=== PATIENT | female | born 1970 | race Caucasian/White ===

== ENCOUNTER 2016-06-12 12:49 | Emergency (ER) | payer OTHER ==
[~2016-06-12 12:49] MED LIST: BACTRIM DS1 TAB PO; PERCOCET1 TA1 PO
--- NOTE | 2016-06-12 14:19 | ED CLINICAL REPORT ---
Clinical Report - Physicians/Mid Levels [facility] [address] [place] [address] 06/12/2016 12:51 Patient: CURTIS ROBLEDO Time Seen: 13:22; initial patient contact, initial documentation, patient care assumed. Arrived- By private vehicle. Historian- patient. HISTORY OF PRESENT ILLNESS Chief Complaint: COUGH and FEVER. This started about 1 weeks ago and is still present. The illness is described as moderate. The patient has had a cough, fever and generalized muscle aches. She has had moderate amounts of brown sputum ('coffee colored' from coffee drinking, so doesn't really know what color the sputum is). No difficulty breathing, chest discomfort or pain or sore throat. No nasal congestion or discharge, sinus pressure or sinus drainage. She has had moderate left ear pain. Additional history - The patient has had contact with a sick coworker. No recent travel. Similar symptoms previously: None. Recent medical care: The patient was seen recently in the office. ( had teeth removed Monday, bottom molars, only rx was pain meds). REVIEW OF SYSTEMS The patient has had a headache. All systems otherwise negative, except as recorded above. PAST HISTORY See nurses notes. PROBLEMS: Folliculitis. Cellulitis. Abscess. Back Pain. --12:59 Velia Esteban R.N. ADDITIONAL SURGERIES: . Hysterectomy. --12:59 Velia Esteban R.N. SOCIAL HISTORY Light tobacco smoker. Occasional alcohol use. Not exposed to second-hand smoke at home. No drug use. No recent travel. Is a local resident. FAMILY HISTORY Negative. ADDITIONAL NOTES The nursing notes have been reviewed with agreement regarding the chief complaint, HPI, ROS, PMH and patient medications and allergies. PHYSICAL EXAM Vital Signs: 06/12/2016 12:55 BP: 134/77. HR: 82. RR: 18. O2 saturation: 100%. Temp: 99.1 F. Pain level now: 5/10. Have been reviewed as normal and appear to be correct. Appearance: Alert. No acute distress. Eyes: Pupils equal, round and reactive to light. Eyes normal inspection. ENT: Ears normal. Nose normal. Pharynx normal. Uvula midline. (L lower molar extraction site, clear, no swelling, no dc). Neck: Normal inspection. Neck supple. CVS: Normal heart rate and rhythm. Heart sounds normal. Pulses normal. Respiratory: No respiratory distress. Breath sounds normal. Back: Normal inspection. Skin: Skin warm and dry. Normal skin color. No rash. Normal skin turgor. Extremities: Extremities exhibit normal ROM. No lower extremity edema. Neuro: Oriented X 3. No motor deficit. No sensory deficit. LABS, X-RAYS, AND EKG Laboratory Tests: Rapid Influenza Screen: (ROSANNA: 06/12/2016 13:45) ( MsgRcvd 06/12/2016 14:05) Final results SPECIMEN DESCRIPTION: NARE Test Result Flag Units (Reference) RAPID INFLUENZA SCREEN DATE: 06/12/16 INFLUENZA A: NEGATIVE SCREEN FOR INFLUENZA A INFLUENZA B: NEGATIVE SCREEN FOR INFLUENZA B . PROGRESS AND PROCEDURES Course of Care: MODULAR SET CREW MEMBER Student Anette assisting with exam and pt care, with my supervision. Patient counseled in person regarding the patient's stable condition, test results and diagnosis. 1415. Differential Diagnosis: Other possible considerations: dental abscess, uri, flu, viral illness, bronchitis, sinusitis, pneumonia. Above considerations are based on history, physical exam and laboratory data. Differential diagnosis was discussed with patient. Disposition: Discharged home in good and unchanged condition (14:19). Condition: good and stable. CLINICAL IMPRESSION Acute viral rhinitis. Moderate dental pain. INSTRUCTIONS Alternate Tylenol (Acetaminophen) and Motrin (Ibuprofen) for fever, temperature greater than 101 degrees orally. Take according to label instructions. Do not work today. Drink plenty of fluids. Warnings: GENERAL WARNINGS: Return or contact your physician immediately if your condition worsens or changes unexpectedly, if not improving as expected, or if other problems arise. Specifically return if problem worsens. Prescription Medications: Penicillin V 500mg: take 1 tab orally every 6 hours for 10 days. Dispense forty (40). No refill Motrin 600 mg tablets: take 1 tablet orally every 6 hours as needed for pain or fever. Dispense thirty (30). No refill. Follow-up: Follow up with your doctor in about three days as needed. Call for an appointment. Summary of care provided to patient. Follow up with a dentist in about three days even if well. Call for an appointment. Summary of care provided to patient. Understanding of the discharge instructions verbalized by patient. (Electronically signed by Tara López A.R.N.P. 06/12/2016 15:04)
--- NOTE | 2016-06-12 14:19 | ED NURSING NOTES ---
Clinical Report - Nurses [facility] [address] [place] [address] 06/12/2016 12:51 Patient: CURTIS ROBLEDO TRIAGE Triage time 1255. Acuity: LEVEL 4. Chief Complaint: FEVER, COUGH and BODY ACHES. --13:01 Velia Esteban R.N. 12:55 06/12/16. BP: 134/77. HR: 82. RR: 18. O2 saturation: 100%. Temp: 99.1 F. Pain level now: 09/14. Additional comments: general body aches . --13:01 Velia Esteban R.N. Weight: 63.5 kg stated. Height/Length: 65 inches Per Patient. BMI: 23.3. --13:00 Velia Esteban R.N. Medications None. --14:50 Velia Esteban R.N. Allergies No Known Drug Allergy. --14:50 Velia Esteban R.N. History Arrived by private vehicle. Historian: patient. Unaccompanied. Primary physician (juliano Salas). ( bilateral ear pain. Pt just had teeth pulled Monday morning, worried about possible infection). She has had fatigue and a headache. PAST MEDICAL HX: The patient has had a hysterectomy. SOCIAL HX: Light tobacco smoker (cigarette)- less than 1/2 a pack per day. No alcohol use or drug use. --13:01 Velia Esteban R.N. PROBLEMS: Folliculitis. Cellulitis. Abscess. Back Pain. --12:59 Velia Esteban R.N. ADDITIONAL SURGERIES: . Hysterectomy. --12:59 Velia Esteban R.N. Interventions ID band on patient. To treatment room. --13:01 Velia Esteban R.N. PHYSICAL ASSESSMENT 12:55. Ambulatory to room. Patient gowned. GENERAL / NEURO / PSYCH: Alert. Oriented X 4. Appears in no acute distress. HEENT: Abnormal ear exam (bilateral ear pain, left more than right). ( c/o headache). RESPIRATORY: Respirations not labored. Cough. CVS: Capillary refill less than 2 seconds. GI / : Abdomen soft. SKIN: Skin is warm and dry. --13:03 Velia Esteban R.N. NURSING PROGRESS NOTES 12:55. Reassurance given. Patient identifiers checked. Call light placed in reach. Patient placed in chair. Patient ready for evaluation- chart flagged. --13:02 Velia Esteban R.N. 13:49 06/12/16. Patient ID band checked for patient name and birthdate: patient confirmed. Flu swab obtained by RN via nasal pharyngeal swab. Labeled in the presence of the patient and sent to lab. --13:49 Velia Estbean R.N. 14:15. ( resting quietly, waiting for flu swab results. In no acute distress. on phone w friend). --14:50 Velia Esteban R.N. DISPOSITION / DISCHARGE 14:30. Condition at departure: stable. No learning barriers present. Discharge instructions provided and reviewed with the patient. Reviewed medication(s) (pen VK, motrin). Patient verbalized understanding. Written instructions provided in Swazi. The patient was discharged home and unaccompanied at time of discharge. She left the Emergency Department ambulatory and via private vehicle. Patient driving. --14:49 Velia Esteban R.N. 14:35 06/12/16. BP: 122/70. HR: 74. RR: 18. O2 saturation: 100%. Temp: deferred. Pain level now: 07/15. --14:49 Velia Esteban R.N. Locked/Released at 06/12/2016 14:50 by Velia Esteban R.N.
--- NOTE | 2016-06-12 14:19 | ED CLINICAL REPORT ---
Clinical Report - Physicians/Mid Levels [facility] [address] [place] [address] 06/12/2016 12:51 Patient: CURTIS ROBLEDO Time Seen: 13:22; initial patient contact, initial documentation, patient care assumed. Arrived- By private vehicle. Historian- patient. HISTORY OF PRESENT ILLNESS Chief Complaint: COUGH and FEVER. This started about 1 weeks ago and is still present. The illness is described as moderate. The patient has had a cough, fever and generalized muscle aches. She has had moderate amounts of brown sputum ('coffee colored' from coffee drinking, so doesn't really know what color the sputum is). No difficulty breathing, chest discomfort or pain or sore throat. No nasal congestion or discharge, sinus pressure or sinus drainage. She has had moderate left ear pain. Additional history - The patient has had contact with a sick coworker. No recent travel. Similar symptoms previously: None. Recent medical care: The patient was seen recently in the office. ( had teeth removed Monday, bottom molars, only rx was pain meds). REVIEW OF SYSTEMS The patient has had a headache. All systems otherwise negative, except as recorded above. PAST HISTORY See nurses notes. PROBLEMS: Folliculitis. Cellulitis. Abscess. Back Pain. --12:59 Velia Esteban R.N. ADDITIONAL SURGERIES: . Hysterectomy. --12:59 Velia Esteban R.N. SOCIAL HISTORY Light tobacco smoker. Occasional alcohol use. Not exposed to second-hand smoke at home. No drug use. No recent travel. Is a local resident. FAMILY HISTORY Negative. ADDITIONAL NOTES The nursing notes have been reviewed with agreement regarding the chief complaint, HPI, ROS, PMH and patient medications and allergies. PHYSICAL EXAM Vital Signs: 06/12/2016 12:55 BP: 134/77. HR: 82. RR: 18. O2 saturation: 100%. Temp: 99.1 F. Pain level now: 5/10. Have been reviewed as normal and appear to be correct. Appearance: Alert. No acute distress. Eyes: Pupils equal, round and reactive to light. Eyes normal inspection. ENT: Ears normal. Nose normal. Pharynx normal. Uvula midline. (L lower molar extraction site, clear, no swelling, no dc). Neck: Normal inspection. Neck supple. CVS: Normal heart rate and rhythm. Heart sounds normal. Pulses normal. Respiratory: No respiratory distress. Breath sounds normal. Back: Normal inspection. Skin: Skin warm and dry. Normal skin color. No rash. Normal skin turgor. Extremities: Extremities exhibit normal ROM. No lower extremity edema. Neuro: Oriented X 3. No motor deficit. No sensory deficit. LABS, X-RAYS, AND EKG Laboratory Tests: Rapid Influenza Screen: (ROSANNA: 06/12/2016 13:45) ( MsgRcvd 06/12/2016 14:05) Final results SPECIMEN DESCRIPTION: NARE Test Result Flag Units (Reference) RAPID INFLUENZA SCREEN DATE: 06/12/16 INFLUENZA A: NEGATIVE SCREEN FOR INFLUENZA A INFLUENZA B: NEGATIVE SCREEN FOR INFLUENZA B . PROGRESS AND PROCEDURES Course of Care: AUTOMOTIVE DIAGNOSTIC TECHNICIAN Student Anette assisting with exam and pt care, with my supervision. Patient counseled in person regarding the patient's stable condition, test results and diagnosis. 1415. Differential Diagnosis: Other possible considerations: dental abscess, uri, flu, viral illness, bronchitis, sinusitis, pneumonia. Above considerations are based on history, physical exam and laboratory data. Differential diagnosis was discussed with patient. Disposition: Discharged home in good and unchanged condition (14:19). Condition: good and stable. CLINICAL IMPRESSION Acute viral rhinitis. Moderate dental pain. INSTRUCTIONS Alternate Tylenol (Acetaminophen) and Motrin (Ibuprofen) for fever, temperature greater than 101 degrees orally. Take according to label instructions. Do not work today. Drink plenty of fluids. Warnings: GENERAL WARNINGS: Return or contact your physician immediately if your condition worsens or changes unexpectedly, if not improving as expected, or if other problems arise. Specifically return if problem worsens. Prescription Medications: Penicillin V 500mg: take 1 tab orally every 6 hours for 10 days. Dispense forty (40). No refill Motrin 600 mg tablets: take 1 tablet orally every 6 hours as needed for pain or fever. Dispense thirty (30). No refill. Follow-up: Follow up with your doctor in about three days as needed. Call for an appointment. Summary of care provided to patient. Follow up with a dentist in about three days even if well. Call for an appointment. Summary of care provided to patient. Understanding of the discharge instructions verbalized by patient. (Electronically signed by Tara López A.R.N.P. 06/12/2016 15:04)
--- NOTE | 2016-06-12 14:19 | ED NURSING NOTES ---
Clinical Report - Nurses [facility] [address] [place] [address] 06/12/2016 12:51 Patient: CURTIS ROBLEDO TRIAGE Triage time 1255. Acuity: LEVEL 4. Chief Complaint: FEVER, COUGH and BODY ACHES. --13:01 Velia Esteban R.N. 12:55 06/12/16. BP: 134/77. HR: 82. RR: 18. O2 saturation: 100%. Temp: 99.1 F. Pain level now: 09/14. Additional comments: general body aches . --13:01 Velia Esteban R.N. Weight: 63.5 kg stated. Height/Length: 65 inches Per Patient. BMI: 23.3. --13:00 Velia Esteban R.N. Medications None. --14:50 Velia Esteban R.N. Allergies No Known Drug Allergy. --14:50 Velia Esteban R.N. History Arrived by private vehicle. Historian: patient. Unaccompanied. Primary physician (juliano Salas). ( bilateral ear pain. Pt just had teeth pulled Monday morning, worried about possible infection). She has had fatigue and a headache. PAST MEDICAL HX: The patient has had a hysterectomy. SOCIAL HX: Light tobacco smoker (cigarette)- less than 1/2 a pack per day. No alcohol use or drug use. --13:01 Velia Esteban R.N. PROBLEMS: Folliculitis. Cellulitis. Abscess. Back Pain. --12:59 Velia Esteban R.N. ADDITIONAL SURGERIES: . Hysterectomy. --12:59 Velia Esteban R.N. Interventions ID band on patient. To treatment room. --13:01 Velia Esteban R.N. PHYSICAL ASSESSMENT 12:55. Ambulatory to room. Patient gowned. GENERAL / NEURO / PSYCH: Alert. Oriented X 4. Appears in no acute distress. HEENT: Abnormal ear exam (bilateral ear pain, left more than right). ( c/o headache). RESPIRATORY: Respirations not labored. Cough. CVS: Capillary refill less than 2 seconds. GI / : Abdomen soft. SKIN: Skin is warm and dry. --13:03 Velia Esteban R.N. NURSING PROGRESS NOTES 12:55. Reassurance given. Patient identifiers checked. Call light placed in reach. Patient placed in chair. Patient ready for evaluation- chart flagged. --13:02 Velia Esteban R.N. 13:49 06/12/16. Patient ID band checked for patient name and birthdate: patient confirmed. Flu swab obtained by RN via nasal pharyngeal swab. Labeled in the presence of the patient and sent to lab. --13:49 Velia Esteban R.N. 14:15. ( resting quietly, waiting for flu swab results. In no acute distress. on phone w friend). --14:50 Velia Esteban R.N. DISPOSITION / DISCHARGE 14:30. Condition at departure: stable. No learning barriers present. Discharge instructions provided and reviewed with the patient. Reviewed medication(s) (pen VK, motrin). Patient verbalized understanding. Written instructions provided in Azerbaijani. The patient was discharged home and unaccompanied at time of discharge. She left the Emergency Department ambulatory and via private vehicle. Patient driving. --14:49 Velia Esteban R.N. 14:35 06/12/16. BP: 122/70. HR: 74. RR: 18. O2 saturation: 100%. Temp: deferred. Pain level now: 07/15. --14:49 Velia Esteban R.N. Locked/Released at 06/12/2016 14:50 by Velia Esteban R.N.
--- NOTE | 2016-06-12 14:19 | ED ORDER SUMMARY ---
..... Patient: CURTIS ROBLEDO OrderSheet [facility] VisitID: [id number] [address] [place] [address] 45y, F Registration Date/Time: 06/12/2016 ORDER SHEET Weight: 63.5 kg (stated) Allergies: No Known Drug Allergy GENERAL ORDERS: Rapid Influenza Screen (Nasal Pharyngeal) (nare) Urgent (13:31 06/12/2016 HBivens A.R.N.P.) [facility] (14:47 Diallo R.N.) MEDICATION ORDERS: IV FLUIDS: ORDER SHEET NOTES: [Electronically signed by Velia Esteban R.N. (14:50 06/12/2016)] [Electronically signed by Tara LópezR.N.P. (15:04 06/12/2016)] [Electronically locked/signed by Velia Esteban R.N. (14:50 06/12/2016)]
--- NOTE | 2016-06-12 14:19 | ED ORDER SUMMARY ---
..... Patient: CURTIS ROBLEDO OrderSheet [facility] VisitID: [id number] [address] [place] [address] 45y, F Registration Date/Time: 06/12/2016 ORDER SHEET Weight: 63.5 kg (stated) Allergies: No Known Drug Allergy GENERAL ORDERS: Rapid Influenza Screen (Nasal Pharyngeal) (nare) Urgent (13:31 06/12/2016 HBivens A.R.N.P.) ([facility] (14:47 Diallo R.N.) MEDICATION ORDERS: IV FLUIDS: ORDER SHEET NOTES: [Electronically signed by Velia Esteban R.N. (14:50 06/12/2016)] [Electronically signed by Tara LópezR.N.P. (15:04 06/12/2016)] [Electronically locked/signed by Velia Esteban R.N. (14:50 06/12/2016)]
--- NOTE | 2016-06-12 15:05 | ED DISCHARGE INSTRUCTIONS ---
Patient: CURTIS ROBLEDO General Instructions [facility] VisitID: [id number] [place] [address] 45y, F Registration Date/Time: 06/12/2016 Acute viral rhinitis. Moderate dental pain. INSTRUCTIONS Alternate Tylenol (Acetaminophen) and Motrin (Ibuprofen) for fever, temperature greater than 101 degrees orally. Take according to label instructions. Do not work today. Drink plenty of fluids. Warnings: GENERAL WARNINGS: Return or contact your physician immediately if your condition worsens or changes unexpectedly, if not improving as expected, or if other problems arise. Specifically return if problem worsens. Prescription Medications: Penicillin V 500mg: take 1 tab orally every 6 hours for 10 days. Dispense forty (40). No refill Motrin 600 mg tablets: take 1 tablet orally every 6 hours as needed for pain or fever. Dispense thirty (30). No refill. Follow-up: Follow up with your doctor in about three days as needed. Call for an appointment. Summary of care provided to patient. Follow up with a dentist in about three days even if well. Call for an appointment. Summary of care provided to patient. Understanding of the discharge instructions verbalized by patient. ADDITIONAL INFORMATION Viral Respiratory Illness [Adult] You have an Upper Respiratory Illness (URI) caused by a virus. This illness is contagious during the first few days. It is spread through the air by coughing and sneezing or by direct contact (touching the sick person and then touching your own eyes, nose or mouth). Most viral illnesses go away within 7-10 days with rest and simple home remedies. Sometimes, the illness may last for several weeks. Antibiotics will not kill a virus and are generally not prescribed for this condition. Home Care: 1) If symptoms are severe, rest at home for the first 2-3 days. When you resume activity, don't let yourself get too tired. 2) Avoid being exposed to cigarette smoke (yours or others). 3) Tylenol (acetaminophen) or ibuprofen (Advil, Motrin) will help fever, muscle aching and headache. (Persons under 18 with fever should not take aspirin since this may cause liver damage.) 4) Your appetite may be poor, so a light diet is fine. Avoid dehydration by drinking 6-8 glasses of fluids per day (water, soft drinks, juices, tea, soup). Extra fluids will help loosen secretions in the nose and lungs. 5) Spgi-asx-aexrpao cold medicines will not shorten the length of time youre sick, but they may be helpful for the following symptoms: cough (Robitussin DM); sore throat (Chloraseptic lozenges or spray); nasal and sinus congestion (Actifed, Sudafed, Chlortrimeton). Follow Up with your doctor or as advised if you dont improve over the next week. Get Prompt Medical Attention if any of the following occur: -- Cough with lots of colored sputum (mucus) or blood in your sputum -- Chest pain, shortness of breath, wheezing or have trouble breathing -- Severe headache; face, neck or ear pain -- Fever over 100.4 F (38.0 C) for more than three days -- You cant swallow due to throat pain Dental Pain A crack or cavity in the tooth, which exposes the sensitive inner area of the tooth can cause tooth pain. An infection in the gum or the root of the tooth can cause pain and swelling. The pain is often made worse by drinking hot or cold fluids, or biting on hard foods. Pain may spread from the tooth to the ear or jaw on the same side. Home Care: Avoid hot and cold foods and liquids since your tooth may be sensitive to temperature changes. If your tooth is chipped or cracked, or if there is a large open cavity, apply OIL OF CLOVES (available gugc-lql-rcfjviz in drug stores) directly to the tooth to reduce pain. Some pharmacies carry an tybq-rez-qbbedzg "toothache kit." This contains a paste, which can be applied over the exposed tooth to decrease sensitivity. A cold pack on your jaw over the sore area may help reduce pain. You may use acetaminophen (Tylenol) or ibuprofen (Motrin, Advil) to control pain, unless another medicine was prescribed. [ NOTE: If you have chronic liver or kidney disease or ever had a stomach ulcer or GI bleeding, talk with your doctor before using these medicines.] If you have signs of an infection, an antibiotic will be given. Take it as directed. Follow-Up as directed with a dentist. Your pain may go away with the treatment given. However, only a dentist can fully evaluate and treat the cause and prevent the pain from coming back again. TOOTHACHE IS A SIGN OF DISEASE IN YOUR TOOTH AND SHOULD BE EXAMINED AND TREATED BY A DENTIST. Get Prompt Medical Attention if any of the following occur: Your face becomes swollen or red Pain worsens or spreads to the neck Fever over 100.4 F (38.0 C) Unusual drowsiness; headache or stiff neck; weakness or fainting Pus drains from the tooth Difficulty swallowing or breathing Fever Control (Adult) A fever is a natural reaction of the body to an illness. In most cases, the temperature itself is not harmful. It actually helps the body fight infections. A fever does not need to be treated unless you feel very uncomfortable. Home Care If you feel warm, check your temperature. If you feel very uncomfortable and your temperature is at or higher than 100.4F (38C) oral, you may take acetaminophen (Tylenol) every 4 to 6 hours. If you cant take or keep down oral medicine, ask your pharmacist for Tylenol suppositories, which you can get without a prescription. If the fever does not respond to acetaminophen within 1 hour, take ibuprofen (Advil or Motrin). If this works, keep taking the ibuprofen every 6 to 8 hours. Note: If you have chronic liver or kidney disease or ever had a stomach ulcer or GI bleeding, talk with your doctor before using these medications. If either medication alone does not keep the fever down, you may alternate the two medicines every 3 to 4 hours, only if your healthcare provider has instructed you to do so. For example, take Motrin then wait 3 hours, take Tylenol then wait 3 hours, take Motrin, and so on. Follow your healthcare providers instructions exactly. Clothing: Keep clothing light because excess body heat is lost through the skin. The fever will go up if you wear extra layers or wrap in blankets. Fluids: Fever causes the body to lose water through evaporation. Drink plenty of fluids such as water, juice, clear sodas, luca mildred, or lemonade. Do not use aspirin in anyone under 18 years of age who is ill with a fever. It can cause severe liver damage. Follow Up with your doctor or as advised by our staff if you do not get better after 48 hours. Get Prompt Medical Attention if any of the following occur: Fever does not get better after taking fever medication Fast or difficult breathing Earache, sinus pain, stiff or painful neck, headache, repeated diarrhea or vomiting You feel unusually irritable, drowsy, or confused A rash appears You feel weak or dizzy, or that you might faint Penicillin V Potassium Oral tablet What is this medicine? PENICILLIN V (pen i SILL in V) is a penicillin antibiotic. It is used to treat certain kinds of bacterial infections. It will not work for colds, flu, or other viral infections. How should I use this medicine? Take this medicine by mouth with a full glass of water. Follow the directions on the prescription label. Take your medicine at regular intervals. Do not take your medicine more often than directed. Take all of your medicine as directed even if you think your are better. Do not skip doses or stop your medicine early. Talk to your public relations supervisor regarding the use of this medicine in children. While this drug may be prescribed for selected conditions, precautions do apply. What side effects may I notice from receiving this medicine? Side effects that you should report to your doctor or health neurocritical care physician as soon as possible: allergic reactions like skin rash or hives, swelling of the face, lips, or tongue breathing problems fever new symptoms of infection redness, blistering, peeling or loosening of the skin, including inside the mouth unusually weak or tired Side effects that usually do not require medical attention (report to your doctor or health neurocritical care physician if they continue or are bothersome): diarrhea headache nausea, vomiting sore mouth or tongue stomach upset What may interact with this medicine? control pills methotrexate other antibiotics probenecid some vaccines What if I miss a dose? If you miss a dose, take it as soon as you can. If it is almost time for your next dose, take only that dose. Do not take double or extra doses. Where should I keep my medicine? Keep out of the reach of children. Store at room temperature between 15 and 30 degrees C (59 and 86 degrees F). Keep container tightly closed. Throw away any unused medicine after the expiration date. What should I tell my health care provider before I take this medicine? They need to know if you have any of these conditions: asthma bowel disease, like colitis eczema kidney disease an unusual or allergic reaction to penicillin, cephalosporins, other antibiotics or medicines, foods, tartrazine or other dyes, or preservatives or trying to get breast-feeding What should I watch for while using this medicine? Tell your doctor or health neurocritical care physician if your symptoms do not improve. Do not treat diarrhea with over the counter products. Contact your doctor if you have diarrhea that lasts more than 2 days or if it is severe and watery. If you have diabetes, you may get a false-positive result for sugar in your urine. Check with your doctor or health neurocritical care physician. control pills may not work properly while you are taking this medicine. Talk to your doctor about using an extra method of control. Ibuprofen Oral tablet What is this medicine? IBUPROFEN (eye BYOO proe fen) is a non-steroidal anti-inflammatory drug (NSAID). It is used for dental pain, fever, headaches or migraines, osteoarthritis, rheumatoid arthritis, or painful monthly periods. It can also relieve minor aches and pains caused by a cold, flu, or sore throat. How should I use this medicine? Take this medicine by mouth with a glass of water. Follow the directions on the prescription label. Take this medicine with food if your stomach gets upset. Try to not lie down for at least 10 minutes after you take the medicine. Take your medicine at regular intervals. Do not take your medicine more often than directed. A special MedGuide will be given to you by the pharmacist with each prescription and refill. Be sure to read this information carefully each time. Talk to your public relations supervisor regarding the use of this medicine in children. Special care may be needed. What side effects may I notice from receiving this medicine? Side effects that you should report to your doctor or health neurocritical care physician as soon as possible: allergic reactions like skin rash, itching or hives, swelling of the face, lips, or tongue black or bloody stools, blood in the urine or in vomit breathing problems changes in vision chest pain general ill feeling or flu-like symptoms nausea or vomiting redness, blistering, peeling or loosening of the skin, including inside the mouth slurred speech or weakness on one side of the body stomach pain unexplained weight gain or swelling unusually weak or tired yellowing of eyes or skin Side effects that usually do not require medical attention (report to your doctor or health neurocritical care physician if they continue or are bothersome): constipation or diarrhea dizziness gas or heartburn stomach upset What may interact with this medicine? Do not take this medicine with any of the following medications: cidofovir ketorolac methotrexate pemetrexed This medicine may also interact with the following medications: alcohol aspirin diuretics lithium other drugs for inflammation like prednisone warfarin What if I miss a dose? If you miss a dose, take it as soon as you can. If it is almost time for your next dose, take only that dose. Do not take double or extra doses. Where should I keep my medicine? Keep out of the reach of children. Store at room temperature between 15 and 30 degrees C (59 and 86 degrees F). Keep container tightly closed. Throw away any unused medicine after the expiration date. What should I tell my health care provider before I take this medicine? They need to know if you have any of these conditions: asthma cigarette smoker drink more than 3 alcohol containing drinks a day heart disease or circulation problems such as heart failure or leg edema (fluid retention) high blood pressure kidney disease liver disease stomach bleeding or ulcers an unusual or allergic reaction to ibuprofen, aspirin, other NSAIDS, other medicines, foods, dyes, or preservatives or trying to get breast-feeding What should I watch for while using this medicine? Tell your doctor or healthcare professional if your symptoms do not start to get better or if they get worse. This medicine does not prevent heart attack or stroke. In fact, this medicine may increase the chance of a heart attack or stroke. The chance may increase with longer use of this medicine and in people who have heart disease. If you take aspirin to prevent heart attack or stroke, talk with your doctor or health neurocritical care physician. Do not take other medicines that contain aspirin, ibuprofen, or naproxen with this medicine. Side effects such as stomach upset, nausea, or ulcers may be more likely to occur. Many medicines available without a prescription should not be taken with this medicine. This medicine can cause ulcers and bleeding in the stomach and intestines at any time during treatment. Ulcers and bleeding can happen without warning symptoms and can cause . To reduce your risk, do not smoke cigarettes or drink alcohol while you are taking this medicine. You may get drowsy or dizzy. Do not drive, use machinery, or do anything that needs mental alertness until you know how this medicine affects you. Do not stand or sit up quickly, especially if you are an older patient. This reduces the risk of dizzy or fainting spells. This medicine can cause you to bleed more easily. Try to avoid damage to your teeth and gums when you brush or floss your teeth. You have been given the following additional information: Uri, Viral, No Abx (Adult) Dental Pain Fever Control (Adult) Penicillin V Potassium Oral tablet Ibuprofen Oral tablet Do not work today. (Electronically signed by Tara López A.R.N.P. 06/12/2016 15:04)
--- NOTE | 2016-06-12 15:05 | ED MED RECONCILIATION SUMMARY ---
Patient: CURTIS ROBLEDO Medication Reconciliation Report [facility] VisitID: [id number] [address] [place] [address] 45y, F Registration Date/Time: 06/12/2016 Weight: 63.5 kg Height/Length: 65 in. BMI: 23.3 ALLERGIES: No Known Drug Allergy The patient's Home Medications are listed below: NONE. The source(s) of the original Home Medication information: Not obtained. The following Medications were given to the patient in the Emergency Department: None. The following Medications were prescribed to the patient: Penicillin V 500mg: take 1 tab orally every 6 hours for 10 days. Dispense forty (40). No refill -- Tara López, A.R.N.P. Motrin 600 mg tablets: take 1 tablet orally every 6 hours as needed for pain or fever. Dispense thirty (30). No refill. -- Tara López, A.R.N.P.
--- NOTE | 2016-06-12 15:05 | ED MAR SUMMARY ---
..... Medication Administration Record [facility] [address] [place], [place] [id number] Patient: CURTIS ROBLEDO Visit ID: [id number] 45y, F Weight: 63.5 kg Height/Length: 65 in BMI: 23.3 ALLERGIES: No Known Drug Allergy
--- NOTE | 2016-06-12 15:05 | ED MAR SUMMARY ---
..... Medication Administration Record [facility] [address] [place], [place] [id number] Patient: CURTIS ROBLEDO Visit ID: [id number] 45y, F Weight: 63.5 kg Height/Length: 65 in BMI: 23.3 ALLERGIES: No Known Drug Allergy
--- NOTE | 2016-06-12 15:05 | ED MED RECONCILIATION SUMMARY ---
Patient: CURTIS ROBLEDO Medication Reconciliation Report [facility] VisitID: [id number] [address] [place] [address] 45y, F Registration Date/Time: 06/12/2016 Weight: 63.5 kg Height/Length: 65 in. BMI: 23.3 ALLERGIES: No Known Drug Allergy The patient's Home Medications are listed below: NONE. The source(s) of the original Home Medication information: Not obtained. The following Medications were given to the patient in the Emergency Department: None. The following Medications were prescribed to the patient: Penicillin V 500mg: take 1 tab orally every 6 hours for 10 days. Dispense forty (40). No refill -- Tara López, A.R.N.P. Motrin 600 mg tablets: take 1 tablet orally every 6 hours as needed for pain or fever. Dispense thirty (30). No refill. -- Tara López, A.R.N.P.
== END 2016-06-12 14:30 | disposition home or self-care (01) ==
LOC: ED SRH 12:49
DX: J00 Acute nasopharyngitis [common cold] (principal); K08.89 Other specified disorders of teeth and supporting structures; F17.210 Nicotine dependence, cigarettes, uncomplicated
CPT/HCPCS: 91400